=== PATIENT | male | born 2000 | race African-American/Black ===

== ENCOUNTER 2021-07-15 05:16 | Emergency (ER) | payer OTHER ==
[~2021-07-15] VITALS: Ht 182.9 cm; Wt 95.5 kg
[2021-07-15 05:23] VITALS: TEMP 97.7
[2021-07-15] MEDS ORDERED: ZOFRAN ODT4 MG PO (05:34)
[2021-07-15 05:37] LABS: BASO % 0.3 % (0.0-2.0); EOS # 0.1 K/mm3 (0.0-0.7); EOS % 0.5 % (0.0-4.0); GRAN # 11.3 K/mm3 (1.4-6.5); GRAN % 84.2 % (42.2-75.2); HEMATOCRIT 50.2 % (42.0-52.0); LYMPH # 0.8 K/mm3 (1.2-3.4); LYMPH % 6.2 % (20.0-51.0); MEAN CELL VOLUME 76 fl (80.0-100.0); MEAN CORPUSCULAR HEMOGLOBIN 26 pg (27-31); MEAN CORPUSCULAR HGB CONC 34 g/dl (33.0-37.0); MONO # 1.1 K/mm3 (0.1-0.6); MONO % 8.5 % (1.7-9.3); PLATELET COUNT 289 K/mm3 (130-400); RED BLOOD COUNT 6.57 M/mm3 (4.20-5.60)
[2021-07-15 05:54] LABS: ALBUMIN 5.1 gm/dL (3.5-5.0); BILIRUBIN,TOTAL 1.4 mg/dL (0.2-1.2); CREATININE, serum 1.28 mg/dL (0.72-1.25); POTASSIUM 3.7 mmol/L (3.5-4.5); TOTAL PROTEIN 8.8 gm/dL (6.2-8.1)
[2021-07-15 08:41] VITALS: BP 112/67; PULSE 100
== END 2021-07-15 08:41 | disposition home or self-care (01) ==
LOC: COL.ER 05:16
PROVIDERS: Personal Emergency Response Attendant
DX: R19.7 Diarrhea, unspecified (principal); R11.10 Vomiting, unspecified; D72.829 Elevated white blood cell count, unspecified; E80.7 Disorder of bilirubin metabolism, unspecified
CPT/HCPCS: J2405; J7030

== ENCOUNTER 2021-07-17 19:40 | Emergency (ER) | payer OTHER ==
[~2021-07-17 19:40] MED LIST: ZOFRAN ODT4 MG PO
[2021-07-17 19:48] VITALS: TEMP 101.9
[2021-07-17 21:57] LABS: BASO % 0.2 % (0.0-2.0); EOS # 0.1 K/mm3 (0.0-0.7); EOS % 1.3 % (0.0-4.0); GRAN # 6.9 K/mm3 (1.4-6.5); HEMATOCRIT 40.8 % (42.0-52.0); LYMPH # 0.5 K/mm3 (1.2-3.4); LYMPH % 6.2 % (20.0-51.0); MEAN CELL VOLUME 77 fl (80.0-100.0); MEAN CORPUSCULAR HEMOGLOBIN 27 pg (27-31); MEAN CORPUSCULAR HGB CONC 35 g/dl (33.0-37.0); MEAN PLATELET VOLUME 9.1 fl (7.4-10.4); MONO # 0.9 K/mm3 (0.1-0.6); MONO % 10.9 % (1.7-9.3); PLATELET COUNT 206 K/mm3 (130-400); RED BLOOD COUNT 5.31 M/mm3 (4.20-5.60); REDCELL DISTRIBUTION WIDTH-CV 11.9 % (11.5-14.5)
[2021-07-17 22:06] LABS: HEMOGLOBIN 14.1 g/dl (13.5-18.0)
[2021-07-17 22:14] LABS: ALBUMIN 4.1 gm/dL (3.5-5.0); BILIRUBIN,TOTAL 1.9 mg/dL (0.2-1.2); CALCIUM 8.8 mg/dL (8.4-10.2); CREATININE, serum 1.22 mg/dL (0.72-1.25); POTASSIUM 3.4 mmol/L (3.5-4.5); TOTAL PROTEIN 7.1 gm/dL (6.2-8.1)
[2021-07-17] MEDS ORDERED: PHENERGAN 25 TA25 MG PO (22:59)
[2021-07-17 23:30] VITALS: BP 122/83; PULSE 97
== END 2021-07-17 23:30 | disposition home or self-care (01) ==
LOC: COL.ER 19:40
PROVIDERS: Personal Emergency Response Attendant
DX: R05.9 Cough, unspecified (principal)
CPT/HCPCS: J1790; J1885; J7030